=== PATIENT | male | born 2000 | race Caucasian/White ===

== ENCOUNTER 2018-03-09 22:00 | Emergency (ER) | payer OTHER ==
[2018-03-09] MEDS ORDERED: Ibuprofen TAB* 600 MG PO ONE (22:35)
--- NOTE | 2018-03-09 22:38 | ED ---
GI/ HPI - HPI Summary HPI Summary: Patient complains of testicle pain, right greater than left, after being hit in the testicles by Lacrosse ball at 7 PM this evening. Denies any other pain or injury. Denies change in urination, penile discharge, fever, N/V, abdominal pain. Pain rated 2/10 when lying down. Worse with movement. - History of Current Complaint Chief Complaint: EDGeneral Time Seen by Provider: 03/09/18 22:19 Stated Complaint: TESTICLE INJURY Hx Obtained From: Patient Onset/Duration: Started Hours Ago Timing: Constant Severity: Moderate Current Severity: Moderate Pain Intensity: 4 Location of Pain: Groin Additional Locations for Males: Testicles Pain Characteristics: Aching Pain Radiates to: Inguinal Associated Signs and Symptoms: Positive: Negative - Allergy/Home Medications Allergies/Adverse Reactions: Allergies Allergy/AdvReac Type Severity Reaction Status Date / Time No Known Allergies Allergy Verified 03/09/18 22:03 Home Medications: Home Medications NK [No Home Medications Reported] 03/10/18 [History Confirmed 03/10/18] PMH/Surg Hx/FS Hx/Imm Hx Previously Healthy: Yes Endocrine/Hematology History: Denies: Hx Anticoagulant Therapy Cardiovascular History: Denies: Hx Cardiac Arrest History: Denies: Hx Dialysis Neurological History: Denies: Hx CVA - Immunization History Immunizations Up to Date: Yes Infectious Disease History: No Infectious Disease History: Denies: Traveled Outside the [place] in Last 30 Days - Social History Alcohol Use: Weekly Alcohol Amount: 2x per week Substance Use Type: Reports: Marijuana Smoking Status (MU): Never Smoked Tobacco Review of Systems Constitutional: Negative Eyes: Negative ENT: Negative Cardiovascular: Negative Respiratory: Negative Gastrointestinal: Negative Positive: pain Musculoskeletal: Negative Skin: Negative Neurological: Negative Psychological: Normal All Other Systems Reviewed And Are Negative: Yes Physical Exam - Summary Physical Exam Summary: No erythema, deformity, swelling, ecchymosis, extra warmth noted to bilateral testicles or penis. No discharge noted. No genital lesions noted. Both testicles tender to palpation. Penis nontender to palpation. Triage Information Reviewed: Yes Vital Signs On Initial Exam: Initial Vitals Temp Pulse Resp BP Pulse Ox 99 F 58 16 123/59 95 03/09/18 22:01 03/09/18 22:01 03/09/18 22:01 03/09/18 22:03/09/18 22:01 Vital Signs Reviewed: Yes Appearance: Positive: Well-Appearing Skin: Positive: Warm Head/Face: Positive: Normal Head/Face Inspection Eyes: Positive: Normal Neck: Positive: Supple Respiratory/Lung Sounds: Positive: Clear to Auscultation Cardiovascular: Positive: Normal Abdomen Description: Positive: Nontender Musculoskeletal: Positive: Normal Neurological: Positive: Normal Psychiatric: Positive: Normal AVPU Assessment: Alert - Raghu Coma Scale Best Eye Response: 4 - Spontaneous Best Motor Response: 6 - Obeys Commands Best Verbal Response: 5 - Oriented Coma Scale Total: 15 Diagnostics - Vital Signs Vital Signs Temp Pulse Resp BP Pulse Ox 03/09/18 22:01 99 F 58 16 123/59 95 - Laboratory Lab Statement: Any lab studies that have been ordered have been reviewed, and results considered in the medical decision making process. - Ultrasound No standard instances Ultrasound Interpretation: Positive (See Comments) - RT testicular fracture Ultrasound Interpretation Completed By: Radiologist GIGU Course/Dx - Course Course Of Treatment: Patient complains of testicle pain, right greater than left , after being hit in the testicles by Lacrosse ball at 7 PM this evening. Denies any other pain or injury. Denies change in urination, penile discharge, fever, N/V, abdominal pain. Physical exam:No erythema, deformity, swelling, ecchymosis, extra warmth noted to bilateral testicles or penis. No discharge noted. No genital lesions noted. Both testicles tender to palpation. Penis nontender to palpation. Vital signs within normal limits. Ultrasound positive for likely testicular fracture at upper pole of right testicle with possible discontinuity of the [place] albuginea. No urology on-call here [facility] [place]. Discussed patient with urologist Dr. Sams. Transfer to ED at [facility]. Accepting MD Dr Aldana - Diagnoses Provider Diagnoses: Testicular fracture Discharge - Sign-Out/Discharge Documenting (check all that apply): Patient Departure - Discharge Plan Condition: Stable Disposition: TRANS HIGHER LVL OF CARE FAC Referrals: No Primary Care Phys,NOPCP [Primary Care Provider] - - Billing Disposition and Condition Condition: STABLE Disposition: Trans Higher Lvl of Care Fac
--- NOTE | 2018-03-09 23:43 | RAD ---
EXAM: US Scrotum US Duplex Arterial/Venous of the Testicles, Complete CLINICAL HISTORY: 17 years old, male; Injury or trauma; Injury Lacrosse ball; Initial encounter; Blunt trauma; pain; Additional info: Testicular trauma TECHNIQUE: Real-time ultrasound of the scrotum with color Doppler and image documentation. Real-time duplex ultrasound scan of the arterial and venous flow of the scrotal contents with color Doppler flow and spectral waveform analysis. COMPARISON: No relevant prior studies available. FINDINGS: Right testicle: The right testicle has normal blood flow except for this small hypoechoic area suggesting this represents a small testicular fracture and hematoma. The right testicle is mildly enlarged and heterogeneous measuring 4.6 x 2.7 x 3.1 cm. A 1.1 x 1.4 x 0.5 cm peripheral hypoechoic area is present at the anterior aspect of the upper pole. No torsion. Left testicle: The left testicle measures 4.3 x 2.3 x 2.7 cm. No torsion. Epididymides: The right epididymal head measures 1.0 x 1.1 cm. The left epididymal head measures 1.0 x 0.9 cm. Scrotum: Unremarkable. IMPRESSION: The right testicle is mildly enlarged and heterogeneous with a small peripheral hypoechoic focus at the anterior aspect of the upper pole, likely representing small laceration and hematoma. The right testicle has normal blood flow except for this small hypoechoic area. Findings were discussed with KENNY JONES at 03/09/2018 11:42 PM EDT.
[2018-03-10 01:30] VITALS: BP 121/59
== END 2018-03-10 01:28 | disposition short-term general hospital (02) ==
LOC: ED 22:00
DX: S39.848A Other specified injuries of external genitals, initial encounter (principal); W21.09XA Struck by other hit or thrown ball, initial encounter; Y93.65 Activity, lacrosse and field hockey; Y92.9 Unspecified place or not applicable; N50.812 Left testicular pain; N50.811 Right testicular pain
CPT/HCPCS: 76870; 99283; A9270-GY